=== PATIENT | male | born 1980 | race African-American/Black ===

== ENCOUNTER 2024-12-14 14:15 | Emergency (ER) | payer MEDICAID, OTHER ==
[~2024-12-14] VITALS: Ht 177.8 cm; Wt 69.0 kg
[2024-12-14 14:27] VITALS: O2SAT 100
[2024-12-14 15:05] LABS: HEMATOCRIT 44.9 % (42.0-52.0); HEMOGLOBIN 14.7 g/dL (14.0-18.0); MEAN CORPUSCULAR HEMOGLOBIN 30.5 pg (28.0-32.0); MEAN CORPUSCULAR HGB CONC 32.7 g/dL (31.0-37.0); MEAN CORPUSCULAR VOLUME 93.3 fL (80.0-94.0); PLATELET 207 x1000/uL (130-400); RED BLOOD CELL COUNT 4.81 mill/uL (4.7-6.1); RED CELL DISTRIBUTION WIDTH 12.9 % (11.6-14.6); WHITE BLOOD COUNT 4.9 x1000/uL (4.5-11.0)
[2024-12-14 15:11] LABS: CHLORIDE 110 mEq/L (98-107); POTASSIUM 4.1 mEq/L (3.5-5.1); SODIUM 143 mEq/L (136-145)
[2024-12-14 15:12] LABS: CARBON DIOXIDE 23 mEq/L (21-32)
[2024-12-14 15:13] LABS: CALCIUM 9.6 mg/dL (8.7-10.4)
[2024-12-14 15:16] LABS: CLARITY URINE CLOUDY (CLEAR); COLOR URINE YELLOW (YELLOW); GLUCOSE URINE NEGATIVE (NEGATIVE); KETONES URINE TRACE (NEGATIVE); LEUKOCYTE ESTERASE URINE NEGATIVE (NEGATIVE); NITRITE URINE NEGATIVE (NEGATIVE); OCCULT BLOOD URINE NEGATIVE (NEGATIVE); PH URINE 5.5 (4.5-8.0); PROTEIN URINE NEGATIVE (NEGATIVE); SPECIFIC GRAVITY URINE 1.028 (1.005-1.030)
[2024-12-14 15:17] LABS: CREATININE 0.9 mg/dL (0.6-1.3); GLUCOSE 82 mg/dL (70-105); UREA NITROGEN BLOOD 8 mg/dL (9-23)
[2024-12-14 15:19] LABS: ACETAMINOPHEN < 2 ug/mL (10-30)
[2024-12-14 15:27] LABS: FINE GRANULAR CASTS URINE 0-5 /lpf; HYALINE CASTS URINE 0-5 /lpf; MUCUS URINE 3+ /lpf (NONE/TRACE)
[2024-12-14 15:28] LABS: BACTERIA URINE TRACE; WBC URINE 0-2 /hpf (0-2)
[2024-12-14 15:29] LABS: RBC URINE NONE SEEN /hpf (0-2); SQUAMOUS EPITHELIAL CELL URINE RARE /lpf (RARE/1+)
[2024-12-14 15:35] LABS: *AMPHETAMINES SCREEN URINE NEGATIVE (NEGATIVE); *BARBITURATES SCREEN URINE NEGATIVE (NEGATIVE); *BENZODIAZEPINES SCREEN URINE NEGATIVE (NEGATIVE)
[2024-12-14 15:36] LABS: *COCAINE SCREEN URINE NEGATIVE (NEGATIVE); CANNABINOID URINE SCREEN NEGATIVE (NEGATIVE); ECSTASY MDMA SCREEN URINE NEGATIVE (NEGATIVE); METHADONE URINE SCREEN NEGATIVE (NEGATIVE); OPIATES URINE SCREEN NEGATIVE (NEGATIVE); PHENCYCLIDINE URINE SCREEN NEGATIVE (NEGATIVE)
[2024-12-15 16:35] VITALS: BP 137/95; PULSE 78; RESP 16; TEMP 37.1; O2SAT 100
[2024-12-18 05:08] LABS: ETHANOL URINE Negative % (Cutoff=0.020)
== END 2024-12-15 16:45 | disposition short-term general hospital (02) ==
LOC: ER 14:15
DX: F31.9 Bipolar disorder, unspecified (principal); I10 Essential (primary) hypertension; F20.9 Schizophrenia, unspecified; Z86.73 Personal history of transient ischemic attack (TIA), and cerebral infarction without residual deficits; Z20.822 Contact with and (suspected) exposure to COVID-19; Z79.899 Other long term (current) drug therapy
CPT/HCPCS: 36415; 80048; 80305; 80307; 80320; 80329; 81003; 85027; 87426; 99285; G0480